=== PATIENT | female | born 1985 | race Hispanic/Latino ===

== ENCOUNTER 2016-12-12 10:47 | Emergency (ER) | payer OTHER ==
[2016-12-12 11:07] VITALS: BMI 44.4
[2016-12-12 11:08] VITALS: RESP 20
[2016-12-12] MEDS ORDERED: Albuterol-Ipratrop 3 mg / 0.5 (3 ml) UD INH STA (11:34)
[2016-12-12] MEDS: Albuterol-Ipratrop 3 mg / 0.5 (3 ml) UD INH STA ×5 (11:40→12:25)
[2016-12-12 11:59] LABS: BASO % 0.2 % (0.0-2.0); EOS # 0.4 K/uL (0.0-0.7); EOS % 2.2 % (0.0-4.0); HEMATOCRIT 39.1 % (34.0-47.0); LYMPH # 1.5 K/uL (1.0-4.3); LYMPH % 9.3 % (20.0-40.0); MEAN CELL VOLUME 87.2 fl (81.0-99.0); MEAN CORPUSCULAR HEMOGLOBIN 28.8 pg (27.0-31.0); MONO # 0.7 K/uL (0.0-0.8); MONO % 4.3 % (0.0-10.0); NEUT # 13.6 K/uL (1.8-7.0); PLATELET COUNT 253 K/uL (130-400); RED CELL DISTRIBUTION WIDTH 14.4 % (11.5-14.5); WHITE BLOOD COUNT 16.2 K/uL (4.8-10.8)
--- NOTE | 2016-12-12 12:15 | ED PDOC ---
HPI: SOB/CHF/COPD Time Seen by Provider: 12/12/16 11:11 Chief Complaint (Nursing): Shortness Of Breath Chief Complaint (Provider): Shortness of Breath History Per: Patient History/Exam Limitations: no limitations Onset/Duration Of Symptoms: Days (x4) Current Symptoms Are (Timing): Still Present Additional Complaint(s): Rosario Bell is a 31 year old female with a past medical history of asthma presenting to the ED for an evaluation of difficulty breathing, wheezing, and coughing occurring for 4 days prior to arrival. The patient states she has a dry cough, constant wheezing, and associated congestion. She has been using her Nebulizer and Albuterol pump, reporting she almost ran out of her pump due to recent frequent use. She also states her is sick at home. She denies fever, chest pain, or any history of admission due to Asthma. PMD: Provider TBD Past Medical History Reviewed: Historical Data, Nursing Documentation, Vital Signs Vital Signs: Last Vital Signs Temp 97.7 F 12/12/16 14:42 Pulse 104 H 12/12/16 14:42 Resp 20 12/12/16 14:42 BP 136/69 12/12/16 14:42 Pulse Ox 94 L 12/12/16 14:42 - Medical History PMH: Asthma - Surgical History Surgical History: No Surg Hx - Family History Family History: States: No Known Family Hx - Social History Alcohol: None Drugs: Denies - Home Medications Home Medications: Ambulatory Orders Medication Instructions Recorded Albuterol HFA [Ventolin HFA 90 2 puff IH [id number] #1 inh 12/12/16 mcg/actuation (8 g)] Azithromycin [Z-Sunil] 250 mg PO ASDIR #6 tab 12/12/16 Fluticasone/Salmeterol 250/50 1 puff IH Q12 #1 inh 12/12/16 [Advair Diskus] Prednisone 50 mg PO DAILY #5 tab 12/12/16 - Allergies Allergies/Adverse Reactions: Allergies Allergy/AdvReac Type Severity Reaction Status Date / Time No Known Allergies Allergy Verified 12/12/16 11:05 Review of Systems ROS Statement: Except As Marked, All Systems Reviewed And Found Negative Constitutional: Negative for: Fever ENT: Positive for: Nose Congestion Cardiovascular: Negative for: Chest Pain Respiratory: Positive for: Cough, Shortness of Breath, Wheezing Physical Exam - Reviewed Nursing Documentation Reviewed: Yes Vital Signs Reviewed: Yes - Physical Exam Appears: Positive for: Non-toxic, No Acute Distress (comfortable) Head Exam: Positive for: ATRAUMATIC, NORMOCEPHALIC Skin: Positive for: Normal Color, Warm, Dry Eye Exam: Positive for: EOMI ENT: Positive for: Normal ENT Inspection Neck: Positive for: Normal, Painless ROM, Supple Cardiovascular/Chest: Positive for: Regular Rate, Rhythm. Negative for: Edema, Murmur Respiratory: Positive for: Wheezing (diffuse bilaterally). Negative for: Respiratory Distress Gastrointestinal/Abdominal: Positive for: Normal Exam, Soft. Negative for: Tenderness Back: Positive for: Normal Inspection Extremity: Positive for: Normal ROM Neurologic/Psych: Positive for: Alert, Oriented (x3). Negative for: Motor/ Sensory Deficits - Laboratory Results Result Diagrams: 12/12/16 11:45 12/12/16 11:45 - ECG ECG: Positive for: Interpreted By Me, Viewed By Me ECG Rhythm: Positive for: Normal QRS, Sinus Rhythm (normal). Negative for: ST/ T Changes Rate: 91 O2 Sat by Pulse Oximetry: 99 (RA) Pulse Ox Interpretation: Normal - Radiology X-Ray: Interpreted by Me, Viewed By Me, Read By Radiologist X-Ray Interpretation: No Acute Disease - Progress Re-evaluation Time: 14:35 Condition: Re-examined, Improved Nebulizer Treatments/Peak Flow - Duonebs Number of Bronchodilator Doses given?: 3 - Pre/Post Peak Flow Pre Treatment Peak Flow: 250 Post treatment Peak Flow: 350 - Steroid Treatment Steroid: IV - Clinical Response Clinical Response: Improved Medical Decision Making Medical Decision Making: Time: 11:11 Impression: Asthma exacerbation; bronchitis. Rule out pneumonia. Plan: * ED Ekg * BMP * CMP * Lipase * CBC (with differential) * Peak Flow Pre/Post Tx * Duoneb 3 mg/0.5 mg (3 ml) UD 3 ml Inh * SOLU-Medrol 125 mg IVP * [RAD] Abdomen (Flat Plate) 1 View * [RAD] Chest Two Views (PA/LAT) * Reevaluation Chest Xray: FINDINGS: LUNGS: No active pulmonary disease. PLEURA: No significant pleural effusion identified. No pneumothorax apparent. CARDIOVASCULAR: Normal. OSSEOUS STRUCTURES: No significant abnormalities. VISUALIZED UPPER ABDOMEN: Normal. OTHER FINDINGS: None. IMPRESSION: No active disease. Scribe Attestation: Documented by Lanny Pacheco, acting as a scribe for Melissa Jones MD. Provider Scribe Attestation: All medical record entries made by the Scribe were at my direction and personally dictated by me. I have reviewed the chart and agree that the record accurately reflects my personal performance of the history, physical exam, medical decision making, and the department course for this patient. I have also personally directed, reviewed, and agree with the discharge instructions and disposition. Disposition - Clinical Impression Clinical Impression: Bronchitis, Asthma exacerbation - Patient ED Disposition Is Patient to be Admitted: No Doctor Will See Patient In The: Office Counseled Patient/Family Regarding: Studies Performed, Diagnosis, Need For Followup - Disposition Referrals: [facility] [Outside] Disposition: Routine/Home Disposition Time: 15:32 Condition: GOOD Additional Instructions: take your medications as instructed. Follow up with your PCP in 2-3 days. Return for worsening. Prescriptions: Albuterol HFA [Ventolin HFA 90 mcg/actuation (8 g)] 2 puff IH [id number] #1 inh Azithromycin [Z-Sunil] 250 mg PO ASDIR #6 tab Fluticasone/Salmeterol 250/50 [Advair Diskus] 1 puff IH Q12 #1 inh Prednisone 50 mg PO DAILY #5 tab Instructions: Asthma (ED), Acute Bronchitis (ED)
[2016-12-12 12:21] LABS: BLOOD UREA NITROGEN 6 mg/dl (7-17); CALCIUM 8.7 mg/dL (8.4-10.2); CARBON DIOXIDE 22 mmol/L (22-30); CHLORIDE 108 mmol/L (98-107); GFR AFRICAN-AMERICAN > 60; GLUCOSE,RANDOM 96 mg/dL (65-105); POTASSIUM 3.6 MMOL/L (3.6-5.0); SODIUM 142 mmol/l (132-148)
[2016-12-12 12:35] LABS: BASOPHIL 1 % (0-2); NEUTROPHIL 88 % (42-75); TOTAL CELLS COUNTED 100
[2016-12-12 12:37] LABS: LARGE PLATELETS PRESENT
--- NOTE | 2016-12-12 14:15 | RAD ---
HISTORY: cough wheezing COMPARISON: No prior. TECHNIQUE: Chest PA and lateral FINDINGS: LUNGS: No active pulmonary disease. PLEURA: No significant pleural effusion identified. No pneumothorax apparent. CARDIOVASCULAR: Normal. OSSEOUS STRUCTURES: No significant abnormalities. VISUALIZED UPPER ABDOMEN: Normal. OTHER FINDINGS: None. IMPRESSION: No active disease. Please note: No preliminary report/ innterpretation of this examination provided by emergency department personnel.
[2016-12-12 14:43] VITALS: TEMP 97.7
[2016-12-12 15:42] VITALS: BP 130/60; PULSE 92; O2SAT 96
--- NOTE | 2016-12-13 06:36 | CARD ---
APPROVED REPORT EKG Measurement Heart [id number] <Conclusion> Normal sinus rhythm Normal ECG
== END 2016-12-12 15:44 | disposition home or self-care (01) ==
LOC: H.ER 10:47
DX: J45.901 Unspecified asthma with (acute) exacerbation (principal); J40 Bronchitis, not specified as acute or chronic
CPT/HCPCS: 71020; 80048; 81025; 85025; 93005; 94640; 96374; 99284; J2930